=== PATIENT | female | born 1975 | race American Indian/Alaskan Native ===

== ENCOUNTER 2020-10-11 19:34 | Emergency (ER) | payer SELFPAY ==
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
[2020-10-11 19:15] LABS: Alanine Aminotransferase 22 units/L (7-56); Albumin 3.8 g/dL (3.9-5); BUN/Creatinine Ratio 15; Blood Urea Nitrogen 12 mg/dL (7-17); Calcium 8.8 mg/dL (8.4-10.2); Hemolysis Index 59
[2020-10-11 19:17] LABS: Basophils % (Auto) 0.1 % (0.0-1.8); Eosinophils % (Auto) 0.5 % (0.0-4.3); Hematocrit 48.7 % (30.3-42.9); Lymphocytes # (Auto) 1.8 K/mm3 (1.2-5.4); Lymphocytes % (Auto) 23.7 % (13.4-35.0); Mean Corpuscular HGB Conc 33 % (30-34); Mean Corpuscular Volume 88 fl (79-97); Monocytes # (Auto) 0.3 K/mm3 (0.0-0.8); Monocytes % (Auto) 4.5 % (0.0-7.3); Platelet Count 102 K/mm3 (140-440); Red Blood Count 5.51 M/mm3 (3.65-5.03); Red Cell Distribution Width 13.3 % (13.2-15.2)
[~2020-10-11 19:34] MED LIST: SODIUM CHLORIDE 0.9% 1000 ML 1,000 ML IV ONE
[2020-10-11] MEDS ORDERED: ZIPRASIDONE MESYLATE 20 MG VIAL IM ONE (20:33)
[2020-10-11 21:03] LABS: Amphetamine Screen,Urine Negative; Benzodiazepines Screen,Urine Negative; Cannabinoid Screen,Urine Negative; Cocaine Screen,Urine Negative; HCG Qualitative,Urine Negative (Negative); Methadone Screen,Urine Negative; Opiate Screen,Urine Negative
[2020-10-11] MEDS ORDERED: LORazepam 2 MG/ML VIAL IV ONE (21:30)
[2020-10-11] MEDS ORDERED: LORazepam 2 MG/ML VIAL ONE (21:33)
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
[2020-10-12 00:21] VITALS: BP 114/66
== END 2020-10-12 00:20 | disposition other institution (70) ==
LOC: ED 19:34
DX: S12.100A Unspecified displaced fracture of second cervical vertebra, initial encounter for closed fracture (principal); I60.9 Nontraumatic subarachnoid hemorrhage, unspecified; R41.82 Altered mental status, unspecified; R10.9 Unspecified abdominal pain; V49.59XA Passenger injured in collision with other motor vehicles in traffic accident, initial encounter; Y92.410 Unspecified street and highway as the place of occurrence of the external cause; Y93.89 Activity, other specified; Y99.8 Other external cause status
CPT/HCPCS: 36415; 70450; 71260; 72125; 72128; 72131; 74177; 80053; 80307; 81025; 82550; 85025; 96361; 96372; 96374; 99291; J2060; J3486; J7030; Q9967; 80320; G0480